=== PATIENT | male | born 1955 | race Caucasian/White ===

== ENCOUNTER 2025-07-03 12:00 | Inpatient (IN) | payer MEDICARE, OTHER ==
[2025-07-03 12:49] VITALS: BMI 31.8
[2025-07-03 13:41] LABS: Hematocrit 42.3 % (38.8-50.0); Hemoglobin 14.0 g/dL (13.5-17.5); Mean Corpuscular Hemoglobin 28.7 pg (27.0-33.0); Mean Corpuscular Volume 86.7 fL (81.2-95.1); Platelet Count 241 10x3/uL (150-450); Red Blood Cell (RBC) Count 4.88 10x6/uL (4.32-5.72); White Blood Cell (WBC) Count 9.02 10x3/uL (3.5-10.5)
[2025-07-03 13:53] LABS: INR-International Normal Ratio 1.1; PTT 26.8 sec (22.0-33.0); Prothrombin Time 11.5 sec (9.5-12.1)
[2025-07-03 13:54] LABS: Anion Gap 15 mmol/L (10-20); BUN (Urea Nitrogen) 12 mg/dL (8.4-25.7); Calc. Creatinine Clearance 0 mL/min (70-130); Calcium 9.6 mg/dL (7.8-10.44); Carbon Dioxide 24 mmol/L (23-31); Chloride 104 mmol/L (98-107); Glucose 107 mg/dL (83-110); Potassium 4.6 mmol/L (3.5-5.1); Sodium 138 mmol/L (136-145)
[2025-07-07] MEDS ORDERED: Bupivacaine/Epinephrine 0.25% 30 ML VIAL ONE (06:21)
[2025-07-07] MEDS ORDERED: Famotidine/PF 20 mg/2ml Vial ONE (06:34)
[2025-07-07] MEDS ORDERED: Ondansetron PF 4 MG/2 ML Vial ONE (07:04)
[2025-07-07] MEDS ORDERED: SUCCINYLCHOLINE/SOD CL,ISO/PF 200 MG/10 ML SYRINGE FS ONE (07:04)
[2025-07-07] MEDS ORDERED: PROPOFOL 40 ML ONE (07:04)
[2025-07-07] MEDS ORDERED: Glycopyrrolate 0.2 MG/ML 5 ML SYRINGE ONE (07:04)
[2025-07-07] MEDS ORDERED: KETAMINE 100 MG/ML (5ML VIAL) ONE (07:05)
[2025-07-07] MEDS ORDERED: CEFAZOLIN 2 GM VIAL ONE (07:08)
[2025-07-07] MEDS ORDERED: Phenylephrine 40 MG/NS 250 ML 250 ML ONE (07:12)
[2025-07-07] MEDS ORDERED: Tranexamic Acid 1,000 MG/10 ML VIAL ONE (08:24)
[2025-07-07] MEDS ORDERED: CEFAZOLIN 1 GM VIAL ONE ×2 (09:29)
[2025-07-07] MEDS ORDERED: PHENYLEPHRINE-NS 100 MCG/ML 10 ML SYRINGE ONE (09:29)
[2025-07-07] MEDS ORDERED: Azelastine 137 MCG/NASAL Spray 30 ML NS PRN (12:58)
[2025-07-07] MEDS: TETANUS, DIPHTHERIA TOX,ADULT (TDVAX) 0.5 ML VIAL IM ONE (15:59)
[2025-07-07] MEDS: metFORMIN 500 MG TAB PO SCH (16:08)
[2025-07-07] MEDS: HYDROcodone/Acetaminophen 10/325 mg Tablet PO PRN (17:54)
[2025-07-07] MEDS: Aspirin 81 mg Enteric Coated Tablet PO SCH (20:48)
[2025-07-07] MEDS: Rosuvastatin 10 MG TAB PO SCH (20:48)
[2025-07-07] MEDS: BuPROPion XL 150 MG ER.TAB PO SCH (20:48)
[2025-07-07] MEDS ORDERED: TESTOSTERONE UNDECANOATE PO SCH (21:00)
[2025-07-08] MEDS: CO Q-10 CAPSULE 50 MG PO SCH (08:33)
[2025-07-08] MEDS: Lisinopril 20 MG TAB PO SCH (08:34)
[2025-07-08] MEDS: Metoprolol Succinate XL 25 MG ER.TAB PO SCH (08:34)
[2025-07-08] MEDS: Pantoprazole 40 MG DR.TAB PO SCH (08:34)
[2025-07-08] MEDS ORDERED: Non-Formulary Medication 1 EACH (Tadalafil [Tadalafil] 20 MG Tablet) PO SCH (09:00)
[2025-07-08] MEDS: KRILL PO SCH (15:33)
[2025-07-08] MEDS: LIPIDS PO SCH (15:33)
[2025-07-08] MEDS: EPA PO SCH (15:33)
[2025-07-08] MEDS: OMEGA PO SCH (15:33)
[2025-07-08] MEDS: DHA PO SCH (15:33)
[2025-07-09 05:03] LABS: #Basophils Less than 0.03 10x3/uL (0.0-0.2); #Eosinophils 0.04 10x3/uL (0.0-0.5); #Monocytes 1.37 10x3/uL (0.0-1.1); #Neutrophils 6.90 10x3/uL (1.5-8.4); %Basophils 0.2 % (0.0-2.0); %Eosinophils 0.4 % (0.0-6.0); %Lymphocytes 11.8 % (18.0-47.0); %Monocytes 14.4 % (0.0-10.0); %Neutrophils 72.7 % (40.0-75.0); Hematocrit 28.5 % (38.8-50.0); Hemoglobin 9.2 g/dL (13.5-17.5); Mean Corpuscular Hemoglobin 28.5 pg (27.0-33.0); Mean Corpuscular Volume 88.2 fL (81.2-95.1); Platelet Count 174 10x3/uL (150-450); Red Blood Cell (RBC) Count 3.23 10x6/uL (4.32-5.72); White Blood Cell (WBC) Count 9.50 10x3/uL (3.5-10.5)
[2025-07-09 05:13] LABS: Anion Gap 12 mmol/L (10-20); BUN (Urea Nitrogen) 18 mg/dL (8.4-25.7); Calc. Creatinine Clearance 86 mL/min (70-130); Calcium 8.6 mg/dL (7.8-10.44); Carbon Dioxide 26 mmol/L (23-31); Chloride 102 mmol/L (98-107); Glucose 127 mg/dL (83-110); Potassium 4.6 mmol/L (3.5-5.1); Sodium 135 mmol/L (136-145)
[2025-07-09 08:24] VITALS: TEMP 97.5
[2025-07-09 08:57] VITALS: BP 104/54
[2025-07-09] MEDS: Lisinopril 10 MG TAB PO SCH (08:57)
== END 2025-07-09 11:12 | disposition home or self-care (01) | DRG 457 ==
LOC: CSHTELE 07-07 05:43 → INTOOBSV 07-07 05:43 → CSHTELE 07-07 15:06 → OBSVTOIN 07-09 08:30
PROVIDERS: ADMIT Orthopaedic Surgery; ATTEND Orthopaedic Surgery
PROC: 0SG10AJ Fusion of 2 or more Lumbar Vertebral Joints with Interbody Fusion Device, Posterior Approach, Anterior Column, Open Approach (ICD-10-PCS; principal; 2025-07-07)
PROC: 01NB0ZZ Release Lumbar Nerve, Open Approach (ICD-10-PCS; 2025-07-07)
PROC: 4A11X4G Monitoring of Peripheral Nervous Electrical Activity, Intraoperative, External Approach (ICD-10-PCS; 2025-07-07)
PROC: 0SP304Z Removal of Internal Fixation Device from Lumbosacral Joint, Open Approach (ICD-10-PCS; 2025-07-07)
PROC: 3E03329 Introduction of Other Anti-infective into Peripheral Vein, Percutaneous Approach (ICD-10-PCS; 2025-07-09)
PROC: 0SB20ZZ Excision of Lumbar Vertebral Disc, Open Approach (ICD-10-PCS; 2025-07-09)
PROC: 3E033XZ Introduction of Vasopressor into Peripheral Vein, Percutaneous Approach (ICD-10-PCS; 2025-07-09)
DX: M48.061 Spinal stenosis, lumbar region without neurogenic claudication (principal); T84.216A Breakdown (mechanical) of internal fixation device of vertebrae, initial encounter; M41.56 Other secondary scoliosis, lumbar region; M06.9 Rheumatoid arthritis, unspecified; T84.498S Other mechanical complication of other internal orthopedic devices, implants and grafts, sequela; I12.9 Hypertensive chronic kidney disease with stage 1 through stage 4 chronic kidney disease, or unspecified chronic kidney disease; N18.30 Chronic kidney disease, stage 3 unspecified; G47.33 Obstructive sleep apnea (adult) (pediatric); E03.9 Hypothyroidism, unspecified; Z88.1 Allergy status to other antibiotic agents; Z91.030 Bee allergy status; Z79.899 Other long term (current) drug therapy; I48.91 Unspecified atrial fibrillation; M79.7 Fibromyalgia; R73.03 Prediabetes; Z87.891 Personal history of nicotine dependence; M43.16 Spondylolisthesis, lumbar region; M54.16 Radiculopathy, lumbar region; Y83.8 Other surgical procedures as the cause of abnormal reaction of the patient, or of later complication, without mention of misadventure at the time of the procedure
CPT/HCPCS: 36415; 72110; 80048; 83036; 85025; 85027; 85610; 85730; 86850; 86900; 86901; 94760; C1713; C1776; C1889; J0690; J1100; J1308; J2270; J2405; J2704; J3010

== ENCOUNTER 2025-07-03 12:27 | Outpatient (CLI) | payer MEDICARE, OTHER ==
[2025-07-03 13:41] LABS: Hematocrit 42.3 % (38.8-50.0); Hemoglobin 14.0 g/dL (13.5-17.5); Mean Corpuscular Hemoglobin 28.7 pg (27.0-33.0); Mean Corpuscular Volume 86.7 fL (81.2-95.1); Platelet Count 241 10x3/uL (150-450); Red Blood Cell (RBC) Count 4.88 10x6/uL (4.32-5.72); White Blood Cell (WBC) Count 9.02 10x3/uL (3.5-10.5)
[2025-07-03 13:53] LABS: INR-International Normal Ratio 1.1; PTT 26.8 sec (22.0-33.0); Prothrombin Time 11.5 sec (9.5-12.1)
[2025-07-03 13:54] LABS: Anion Gap 15 mmol/L (10-20); BUN (Urea Nitrogen) 12 mg/dL (8.4-25.7); Calc. Creatinine Clearance 0 mL/min (70-130); Calcium 9.6 mg/dL (7.8-10.44); Carbon Dioxide 24 mmol/L (23-31); Chloride 104 mmol/L (98-107); Glucose 107 mg/dL (83-110); Potassium 4.6 mmol/L (3.5-5.1); Sodium 138 mmol/L (136-145)
== END 2025-07-03 12:28 | disposition home or self-care (01) ==
LOC: CSHLAB 12:27
PROVIDERS: ATTEND Orthopaedic Surgery
DX: Z01.812 Encounter for preprocedural laboratory examination (principal); M54.16 Radiculopathy, lumbar region; T84.498S Other mechanical complication of other internal orthopedic devices, implants and grafts, sequela
CPT/HCPCS: 80048; 83036; 85027; 85610; 85730; 86850; 86900; 86901

== ENCOUNTER 2025-07-03 13:19 | Outpatient (CLI) | payer MEDICARE, OTHER | END 2025-07-03 13:20 | disposition home or self-care (01) | LOC: CSHRAD 13:19 | PROVIDERS: ATTEND Orthopaedic Surgery | DX: M54.50 Low back pain, unspecified (principal); M47.816 Spondylosis without myelopathy or radiculopathy, lumbar region; Z01.812 Encounter for preprocedural laboratory examination; M54.16 Radiculopathy, lumbar region; T84.498S Other mechanical complication of other internal orthopedic devices, implants and grafts, sequela | CPT/HCPCS: 72100; 80048; 83036; 85027; 85610; 85730; 86850; 86900; 86901 ==